=== PATIENT | female | born 1985 | race African-American/Black ===

== ENCOUNTER 2020-05-24 09:02 | Emergency (ER) | payer MEDICAID ==
[~2020-05-24] VITALS: Ht 160 cm; Wt 122.0 kg
--- NOTE | 2020-05-24 09:54 | RAD ---
EXAM: CHEST 1 VIEW History: Shortness of breath, cough COMPARISON: None available. TECHNIQUE: Single portable radiograph of the chest FINDINGS: The cardiac silhouette is unremarkable. The lungs are clear bilaterally. The costophrenic sulci are clear and well demarcated. IMPRESSION: No radiographic evidence of an acute cardiopulmonary process. Electronically signed by: Quang Calle MD (05/24/2020 9:52 AM) [id number]
--- NOTE | 2020-05-24 10:03 | PHYS DOC ---
Past History Past Medical History: Other (Seasonal allergies) Adult General Chief Complaint Chief Complaint: COUGH HPI HPI Patient is a 34-year-old female who presents for cough. Patient has history of seasonal allergies, reports these wax and wane throughout the year and during changes in season. She is currently taking Flonase and a second-generation antihistamine daily. Nonetheless, patient reports approximately 3 weeks ago having URI-like symptoms. She was tested at that time for Covid but was negative. The symptoms got better but reports increased rhinorrhea and ear fullness with dull tension-like headache for past 3 days. She has subsequently developed a dry nonproductive cough. She has been afebrile. She has not been around any COVID-19 contacts. She has no other concerning signs or symptoms such as falls, chest pain, shortness of breath, abdominal pain, loss of taste or smell. Review of Systems Review of Systems Fourteen body systems of review of systems have been reviewed. See HPI for pertinent positives and negative responses, other saucedo all other systems are negative, non-pertinent or non-contributory Allergies Allergies Allergies Coded Allergies Type Severity Reaction Last Updated Verified latex Allergy Unknown 05/24/20 Yes Physical Exam Physical Exam Constitutional: Well developed, well nourished, no acute distress, non-toxic appearance. HENT: Normocephalic, atraumatic, bilateral external ears normal, oropharynx moist, no oral exudates, moderate postnasal drip present, moderately engorged nasal turbinates with clear rhinorrhea present, external nose normal. Eyes: PERRLA, EOMI, conjunctiva normal, no discharge. Neck: Normal range of motion, no tenderness, supple, no stridor. Cardiovascular: Heart rate regular, sinus rhythm, no murmurs rubs or gallops Lungs & Thorax: Bilateral breath sounds clear to auscultation Abdomen: Bowel sounds normal, soft, no tenderness, no masses, no pulsatile masses. Nonsurgical abdomen, no peritoneal signs Skin: Warm, dry, no erythema, no rash. Back: No tenderness, no CVA tenderness. Extremities: No tenderness, no cyanosis, no clubbing, ROM intact, no edema. Neurologic: Alert and oriented X 3, grossly normal motor & sensory function, no focal deficits noted. Psychologic: Affect normal, judgement normal, mood normal. Current Patient Data Vital Signs Vital Signs Date Time Temp Pulse Resp B/P (MAP) Pulse Ox O2 Delivery O2 Flow Rate FiO2 05/24/20 10:41 98.8 67 18 124/78 (93) 98 05/24/20 09:05 Room Air EKG EKG [] Radiology/Procedures Radiology/Procedures PROCEDURE: CHEST AP ONLY EXAM: CHEST 1 VIEW History: Shortness of breath, cough COMPARISON: None available. TECHNIQUE: Single portable radiograph of the chest FINDINGS: The cardiac silhouette is unremarkable. The lungs are clear bilaterally. The costophrenic sulci are clear and well demarcated. IMPRESSION: No radiographic evidence of an acute cardiopulmonary process. Electronically signed by: Quang Calle MD (05/24/2020 9:52 AM) [id number] Heart Score Risk Factors: Risk Factors: DM, Current or recent (<one month) smoker, HTN, HLP, family history of CAD, obesity. Risk Scores: Risk Factors: DM, Current or recent (<one month) smoker, HTN, HLP, family history of CAD, obesity. Course & Med Decision Making Course & Med Decision Making Pertinent Labs and Imaging studies reviewed. (See chart for details) I discussed most likely diagnosis of exacerbation of underlying allergic symp toms versus viral syndrome. Given current Pandemic, I cannot definitively exclude COVID-19 and offered test but patient declined Patient is on maximum therapy at home, I reassured her to continue current medical management and follow-up in outpatient setting with PCP. Given today's visit I do not feel there is any role in antibiotic therapy or other intervention at this time Strict return precautions were discussed with good understanding, all questions and concerns addressed prior to ER departure home in stable condition with continued supportive care advised with close outpatient follow-up Dragon Disclaimer Dragon Disclaimer This electronic medical record was generated, in whole or in part, using a voice recognition dictation system. Departure Departure: Impression: Primary Impression: Viral syndrome Disposition: 01 DC HOME SELF CARE/HOMELESS Condition: STABLE Referrals: DANA PURVIS (PCP) Patient Instructions: Viral Syndrome Additional Instructions: As discussed please follow-up with your outpatient primary care physician for follow-up in upcoming 1 week If any concerning signs or symptoms present prior to outpatient follow-up please do not hesitate to come back for repeat evaluation As discussed, there were no apparent concerns given history, physical examination and chest x-ray for anything concerning. With that said, this might be an acute presentation of more concerning pathology and so close follow-up is advised It was a pleasure to take care of you and I wish you a speedy recovery! RAKEL GRAYSON DO May 24, 2020 10:03
[2020-05-24] MEDS ORDERED: NAPROXEN 500 MG TABLET PO ONE (10:30)
[2020-05-24 10:41] VITALS: BP 124/78
== END 2020-05-24 10:41 | disposition home or self-care (01) ==
LOC: ER 09:02
DX: B34.9 Viral infection, unspecified (principal); Z91.040 Latex allergy status
CPT/HCPCS: 71045; 99285-25